=== PATIENT | male | born 2000 | race Two or more races ===

== ENCOUNTER 2019-03-28 07:34 | Emergency (ER) | payer SELFPAY ==
[~2019-03-28] VITALS: Ht 180.3 cm; Wt 71.7 kg
[2019-03-28 07:53] VITALS: BP 113/41
== END 2019-03-28 08:07 | disposition home or self-care (01) ==
LOC: ER 07:37
DX: J06.9 Acute upper respiratory infection, unspecified (principal); R06.4 Hyperventilation
CPT/HCPCS: Z7502

== ENCOUNTER 2019-04-02 21:47 | Emergency (ER) | payer BC ==
[~2019-04-02] VITALS: Ht 180.3 cm; Wt 68.0 kg
--- NOTE | 2019-04-02 23:10 | NUR ---
PT BIBMOTHER C/O URI SYMPTOMS X5 DAYS. PT C/O NONPRODUCTIVE COUGH, SORE THROAT, BILATERAL EARACHE, PROGRESSIVELY GETTING WORSE. CURRENLTY AFEBRILE. PT AAOX4. RESPIRATIONS EVEN AND UNLABORED. SKIN WARM AND INTACT. NO ACUTE DISTRESS NOTED AT THIS TIME
[2019-04-02] MEDS ORDERED: KETOROLAC TROMETHAMINE INJ 30 MG/ML VIAL ONE (23:17)
--- NOTE | 2019-04-02 23:20 | NUR ---
PT REFUSED TORADOL AT THIS TIME, AWARE
[2019-04-02 23:27] LABS: BASOPHILS % (AUTO) 0.6 % (0.0-2.0); EOSINOPHILS % (AUTO) 2.4 % (0.0-6.0); HEMATOCRIT 46 % (39-51); HEMOGLOBIN 15.6 g/dL (13.5-17.5); LYMPHOCYTES # (AUTO) 2.2 /CMM (0.8-4.8); LYMPHOCYTES % (AUTO) 29.6 % (20.0-44.0); MEAN CORPUSCULAR HGB CONC 34 g/dl (31.0-36.0); MEAN CORPUSCULAR VOLUME 90 fL (80-96); NEUTROPHILS % (AUTO) 53.4 % (43.0-81.0); PLATELET COUNT (AUTO) 251 /CMM (150-450); RED BLOOD CELL COUNT(AUTO) 5.15 MIL/uL (4.5-6.0); WHITE BLOOD COUNT (AUTO) 7.4 K/uL (4.3-11.0)
[2019-04-02] MEDS ORDERED: IV NS 0.9% 1,000 ML BAG IV ONE (23:30)
[2019-04-02] MEDS ORDERED: KETOROLAC TROMETHAMINE INJ 30 MG/ML VIAL IV ONE (23:30)
[2019-04-02 23:35] LABS: CALCIUM, SERUM 9.3 mg/dL (8.5-10.1); CREATININE 1.1 mg/dL (0.6-1.3); POTASSIUM 4.1 mmol/L (3.5-5.1)
[2019-04-02 23:41] LABS: ALBUMIN 3.9 g/dL (3.4-5.0); BILIRUBIN,DIRECT 0.1 mg/dL (0.0-0.2); BILIRUBIN,TOTAL 0.3 mg/dL (0.2-1.0); TOTAL PROTEIN, SERUM 8.8 g/dL (6.4-8.2)
--- NOTE | 2019-04-02 23:47 | NUR ---
RADIOLOGY AT BEDSIDE FOR XRAY
[2019-04-02 23:55] LABS: MONOTEST NEGATIVE (NEGATIVE)
--- NOTE | 2019-04-03 00:35 | NUR ---
Patient discharged to home in stable condition. Written and verbal after care instructions given. Patient verbalizes understanding of instruction. IV removed. Catheter intact and site benign. Pressure and 4x4 applied to site. No bleeding noted. Pt ambulatory with a steady gait
[2019-04-03 00:36] VITALS: BP 100/89
== END 2019-04-03 00:36 | disposition home or self-care (01) ==
LOC: ER 21:49
DX: J02.8 Acute pharyngitis due to other specified organisms (principal)
CPT/HCPCS: 36415; 71045; 80048; 80076; 85025; 85730; 86308; 87070; 87804 ×2; 87880; 99284; J7030; 86403-TC; 87400; J1885